=== PATIENT | male | born 1945 | race Caucasian/White ===

== ENCOUNTER 2019-04-07 14:20 | Inpatient (IN) | payer OTHER, MEDICAID ==
[~2019-04-07] VITALS: Ht 175.3 cm; Wt 98.9 kg
[2019-04-07 14:20] VITALS: BP_SYST 134
--- NOTE | 2019-04-07 14:20 | NUR ---
BROUGHT IN BY [facility], PLACED IN BED #1 AND TRIAGED. REPORT GIVEN TO WISAM
--- NOTE | 2019-04-07 14:27 | NUR ---
PATRICIA Finnegan at bedside examining patient.
--- NOTE | 2019-04-07 14:40 | NUR ---
PATIENT PRESENTS TO THE ER WITH HX OF GENERALIZED SUBJECTIVE WEAKNESS TODAY; NO TRAUMA, NO OTHER REMARKABLE S/S; PATIENT STATES HE CALLED 911
--- NOTE | 2019-04-07 14:44 | NUR ---
PATIENT IS ON DRAWING TRACER AND SAO2
[2019-04-07] MEDS ORDERED: IPRATROPIUM/ALBUTEROL SULFATE 3 ML AMPUL.NEB (DUONEB) INH ONE (14:45)
[2019-04-07 15:02] LABS: BASOPHILS % (AUTO) 0.4 % (0.0-2.0); EOSINOPHILS % (AUTO) 0.3 % (0.0-4.0); HEMATOCRIT 34.5 % (36-54); LYMPHOCYTES # (AUTO) 1.1 K/uL (1.0-5.5); LYMPHOCYTES % (AUTO) 11.2 % (20.5-51.5); MEAN CORPUSCULAR HEMOGLOBIN 31 pg (27-31); MEAN CORPUSCULAR HGB CONC 32 % (32-36); MEAN CORPUSCULAR VOLUME 96 fL (79.0-98.0); MONOCYTES # (AUTO) 1.5 K/uL (0.0-1.0); MONOCYTES % (AUTO) 14.9 % (1.7-9.3); NEUTROPHILS # (AUTO) 7.4 K/uL (1.8-7.7); NEUTROPHILS % (AUTO) 73.2 % (40.0-70.0); PLATELET COUNT (AUTO) 317 K/uL (130-430); RED BLOOD CELL COUNT(AUTO) 3.61 MIL/uL (4.2-6.2); RED CELL DISTRIBUTION WIDTH 15.9 % (9.0-15.0); WHITE BLOOD COUNT (AUTO) 10.1 K/uL (4.8-10.8)
[2019-04-07 15:10] LABS: ANION GAP 3 (5-15); CALCIUM 8.5 mg/dL (8.4-11.0); CHLORIDE 103 mmol/L (98-107); CREATININE 1.78 mg/dL (0.55-1.30); GLUCOSE 145 mg/dL (70-99); POTASSIUM 4.5 mmol/L (3.5-5.1); SODIUM SERUM 138 mmol/L (136-145); UREA NITROGEN, BLOOD 25 mg/dL (8-21)
[2019-04-07 15:14] LABS: ALANINE AMINOTRANSFERASE 25 U/L (12-78); ALBUMIN 2.8 g/dL (3.4-4.8); ASPARTATE AMINOTRANSFERASE 30 U/L (10-37); TOTAL BILIRUBIN 0.3 mg/dL (0.0-1.0)
[2019-04-07 15:31] LABS: BILIRUBIN,URINE NEGATIVE (NEGATIVE); BLOOD, URINE NEGATIVE (NEGATIVE); CLARITY/URINE CLEAR (CLEAR); COLOR,URINE YELLOW (YELLOW); GLUCOSE,URINE NEGATIVE (NEGATIVE); KETONES,URINE NEGATIVE (NEGATIVE); LEUKOCYTE ESTERASE ,URINE NEGATIVE (NEGATIVE); NITRITE, URINE NEGATIVE (NEGATIVE); PH,URINE 5.5 (5.0-8.0); PROTEIN URINE TRACE (NEGATIVE); UROBILINOGEN,URINE 0.2 (0.2-1.0)
--- NOTE | 2019-04-07 15:43 | NUR ---
REASSESSMENT; PATIENT REMAINS PAIN FREE AND SEDATE; SLIGHT LETHARGY REMAINS BUT IS EASILY AROUSABLE AND RESPONSIVE TO QUESTIONS; PATIENT IS CURRENTLY ON OXYGEN 2LM NC; DISPOSITION PENDING
[2019-04-07 15:44] LABS: BACTERIA,URINE FEW /HPF (None Seen); MUCUS,URINE None Seen /LPF (None Seen); RBC,URINE 0-3 /HPF (0-3); WBC,URINE NONE SEEN /HPF (0-3)
--- NOTE | 2019-04-07 16:24 | NUR ---
PATIENT PLACED ON BYPAP AT 30% FIO2, BUR 20 AND 12/5 I/E PRESSURE
[2019-04-07] MEDS ORDERED: NACL 0.9% 1,000 ML IV ONE (16:45)
[2019-04-07] MEDS ORDERED: MULT-1089 PO (16:48)
[2019-04-07] MEDS ORDERED: IPRA3AMP9 INH ×2 (16:48)
[2019-04-07] MEDS ORDERED: ASPI-1457 PO (16:48)
[2019-04-07] MEDS ORDERED: NOR10 PO (16:48)
[2019-04-07] MEDS ORDERED: CEFDINIR PO (16:48)
[2019-04-07] MEDS ORDERED: HYT1 PO (16:48)
[2019-04-07] MEDS ORDERED: DOCU-144 PO (16:48)
[2019-04-07] MEDS ORDERED: GABA-533 PO (16:48)
[2019-04-07] MEDS ORDERED: HYDR-4272 PO (16:48)
[2019-04-07] MEDS ORDERED: HYDR-4039 PO (16:48)
[2019-04-07] MEDS ORDERED: POLY17PO4 PO (16:48)
[2019-04-07] MEDS ORDERED: FLO44 INH (16:48)
[2019-04-07] MEDS ORDERED: ALBU8.5H8 INH ×2 (16:48)
[2019-04-07] MEDS ORDERED: POTA10TA15 PO (16:48)
[2019-04-07] MEDS ORDERED: ROSU20TA2 PO (16:48)
[2019-04-07] MEDS ORDERED: SYN50 PO (16:48)
[2019-04-07] MEDS ORDERED: PRED20TA PO (16:48)
[2019-04-07] MEDS ORDERED: FURO-150 PO (16:48)
[2019-04-07] MEDS ORDERED: CAT.2 PO (16:48)
[2019-04-07] MEDS ORDERED: BACL10TA PO (16:48)
[2019-04-07] MEDS ORDERED: CARB200T PO (16:48)
[2019-04-07] MEDS ORDERED: LORA10TA7 PO (16:48)
[2019-04-07] MEDS ORDERED: ALBU2.5V7 INH (16:48)
[2019-04-07] MEDS ORDERED: LISI40TA4 PO (16:48)
[2019-04-07] MEDS ORDERED: BUDE180A IH (16:48)
[2019-04-07] MEDS ORDERED: ACET325T53 PO (16:48)
--- NOTE | 2019-04-07 16:48 | NUR ---
Medication reconciliation completed with information provided by [facility]. Any prior medication reconciliation on file was reviewed and corrected.
--- NOTE | 2019-04-07 17:09 | NUR ---
REASSESSMENT; PATIENT CONTINUES TO IMPROVE MARGINALLY; LESS LETHARGY; DENIES PAIN, SEDATE; DISPOSITION PENDING
--- NOTE | 2019-04-07 17:56 | NUR ---
REASSESSMENT BY [facility]; PATIENT PREPARED FOR ADMISSION TO TELE; DR BARRAGAN CALLED FOR ORDERS AND PATIENT TRANSPORTED TO TELE [facility] WITH REPORT AT BEDSIDE
--- NOTE | 2019-04-07 18:10 | NUR ---
ADMISSION NOTE Received patient from ER via gurney. Patient admitted with diagnosis of Respiratory Failure/COPDE. Patient is awake, alert, oriented X 3. Patient oriented to hospital room, call light, toileting, pain management and safety-teach back done. Patient informed that Kika will be registered nurse and that their room number is 122B. Personal belongings checked and Belongings List documented. Call light within reach.
--- NOTE | 2019-04-07 18:15 | NUR ---
NOTE PATIENT IS ALERT AND ORIENTED. DENIES PAIN. NO ACUTE DISTRESS. CONT ON BIPAP. SKIN WARM AND DRY TO TOUCH. REDNESS NOTED TO BILATERAL LOWER EXTREMITIES; SKIN INTACT. IV INTACT AND PATENT. BED IN LOW AND LOCKED POSITION. SIDERAIL UPX3. BED ALARM ON. ORIENTATED PATIENT TO ROOM, BED AND CALL LIGHT. CONT TO MONITOR
[2019-04-07 18:24] VITALS: BP_SYST 156
[2019-04-07 18:30] VITALS: BP_SYST 156
[2019-04-07] MEDS ORDERED: DOCUSATE SODIUM 100 MG/10 ML UDC PO PRN (19:15)
[2019-04-07] MEDS ORDERED: HYDROcodone/ACETAMIN 7.5-325 MG TAB PO PRN (19:15)
[2019-04-07] MEDS ORDERED: ACETAMINOPHEN 500 MG TABLET PO PRN (19:15)
[2019-04-07] MEDS ORDERED: POTASSIUM CHLORIDE 40 MEQ in NS 250 ML IV PRN (19:15)
[2019-04-07] MEDS ORDERED: IPRATROPIUM/ALBUTEROL SULFATE 3 ML AMPUL.NEB (DUONEB) INH PRN (19:15)
[2019-04-07] MEDS ORDERED: ONDANSETRON HCL 4 MG/2 ML VIAL IVP PRN (19:15)
[2019-04-07] MEDS ORDERED: methylPREDNISolone SOD SUCC/PF 62.5 MG/ML VIAL IVP ONE (19:15)
--- NOTE | 2019-04-07 19:15 | NUR ---
OPENING NOTES Late entry due to patient care. Bedside report received from dayshift nurse. Patient received lying in bed, no s/s of acute distress noted. Breathing even and unlabored, BiPAP attached, HOB slightly raised. Call light with patient. Bed alarm on. Will continue to monitor.
--- NOTE | 2019-04-07 19:23 | NUR ---
CLOSING NOTE PATIENT STABLE. ON BIPAP ORDERED. NO ACUTE DISTRESS. NO SOB. SKIN WARM AND DRY TO TOUCH. IV INTACT TO RIGHT WRIST; NO S/SX REDNESS/INFILTRATION NOTED. REPOSITIONED FOR COMFORT. BED IN LOW AND LOCKED POSITION. SIDERAIL UPX3. BED ALARM ON. CALL LIGHT IN REACH. ENDORSED TO VALE CARLOS.
--- NOTE | 2019-04-07 19:36 | NUR ---
CONSULTATION PAGED/CALLED Reason for Consultation: COPD EXACERBATION Person Who was Notified: GER Consulting Physician: DR. ZARAGOZA; RISK CONTROL FIELD REPRESENTATIVE - DR. MARTE Boiler/Chiller Operator Specialty: PULMO Ordering Physician: DR. BARRAGAN
[2019-04-07 19:56] LABS: INR 1.1 (0.80-1.20); PROTHROMBIN TIME 10.9 SECS (9.5-12.5)
[2019-04-07 19:57] LABS: FREE T4 (FREE THYROXINE) 0.8 ng/dl (0.8-1.5); PHOSPHORUS 4.6 mg/dL (2.7-4.5); THYROID STIMULATING HORMONE 0.68 uIu/mL (0.36-3.74)
[2019-04-07 20:00] VITALS: BP_SYST 151
[2019-04-07] MEDS: cloNIDine HCL 0.2 MG TABLET PO SCH (21:00)
[2019-04-07] MEDS: hydrALAZINE HCL 25 MG TABLET PO SCH (21:00)
--- NOTE | 2019-04-07 21:00 | NUR ---
REFUSES BIPAP Patient removed BiPAP at this time, patient educated on its purpose and benefits, patient still refuses. Nasal canula attached, patient tolerating well, on 2L of oxygen, SPO2 at 91. Dr. Foreman made aware, orders given to keep SPO2 at 90 but not above 92. Will carry out orders.
[2019-04-07] MEDS: TERAZOSIN HCL 1 MG CAPSULE (HYTRIN) PO SCH (22:45)
[2019-04-07] MEDS: GABAPENTIN 400 MG CAPSULE PO SCH (22:45)
[2019-04-07] MEDS: NACL 0.9% 1,000 ML IV SCH (22:46)
--- NOTE | 2019-04-07 23:00 | NUR ---
ROUNDS Patient on recliner at bedside. No signs of discomfort noted. Chest rise and fall even bilaterally. Nasal canula attached properly, on 2L of oxygen. IVF infusing well. Call light with patient. Will continue to monitor.
[2019-04-07] MEDS ORDERED: cefTRIAXone 1 GM IVPB PREMIX 50 ML IV ONE (23:28)
[2019-04-07] MEDS: cefTRIAXone 1 GM in D5W 50 ML IV SCH (23:31)
[2019-04-07] MEDS: AZITHROMYCIN 250 MG TABLET PO SCH (23:32)
[2019-04-08] VITALS: BP_SYST 146
[2019-04-08] MEDS: IPRATROPIUM/ALBUTEROL SULFATE 3 ML AMPUL.NEB (DUONEB) INH SCH ×7 (00:02→23:00)
--- NOTE | 2019-04-08 01:00 | NUR ---
ROUNDS Patient on recliner, sleeping. No s/s of acute distress noted. Breathing is even and unlabored. All needs met. Will continue to monitor.
--- NOTE | 2019-04-08 03:00 | NUR ---
ROUNDS Patient in recliner, by bedside, sleeping. No s/s of acute distress noted. Breathing even and unlabored. Nasal canula attached properly, on 2L of oxygen. Call light with patient. Will continue to monitor.
--- NOTE | 2019-04-08 05:00 | NUR ---
ROUNDS Patient on recliner, sleeping. No signs of discomfort noted. IVF infusing well. Nasal canula attached properly. Call light with patient. Will continue to monitor.
[2019-04-08] MEDS: methylPREDNISolone SOD SUCC/PF 62.5 MG/ML VIAL IVP SCH ×2 (06:14→14:17)
[2019-04-08] MEDS: LEVOTHYROXINE SODIUM 0.05 MG TABLET PO SCH (06:14)
--- NOTE | 2019-04-08 06:42 | NUR ---
CLOSING NOTES Patient on recliner at this time, asleep. No s/s of acute distress noted. Breathing even and unlabored, nasal canula attached properly. IVF infusing well, IV site patent, no signs of infiltration or infection noted. Skin warm and dry to touch. All needs met throughout shift. Fall and safety precautions maintained throughout shift. Will continue to monitor until patient care is endorsed to oncoming dayshift nurse.
[2019-04-08 07:03] LABS: BASOPHILS % (AUTO) 0.1 % (0.0-2.0); HEMATOCRIT 35.2 % (36-54); HEMOGLOBIN 11.1 g/dL (14.0-18.0); LYMPHOCYTES # (AUTO) 0.4 K/uL (1.0-5.5); LYMPHOCYTES % (AUTO) 5.1 % (20.5-51.5); MEAN CORPUSCULAR HEMOGLOBIN 30 pg (27-31); MEAN CORPUSCULAR HGB CONC 32 % (32-36); MEAN CORPUSCULAR VOLUME 96 fL (79.0-98.0); MONOCYTES # (AUTO) 0.2 K/uL (0.0-1.0); MONOCYTES % (AUTO) 2.1 % (1.7-9.3); NEUTROPHILS # (AUTO) 7.7 K/uL (1.8-7.7); NEUTROPHILS % (AUTO) 92.7 % (40.0-70.0); PLATELET COUNT (AUTO) 322 K/uL (130-430); RED BLOOD CELL COUNT(AUTO) 3.68 MIL/uL (4.2-6.2); RED CELL DISTRIBUTION WIDTH 15.4 % (9.0-15.0); WHITE BLOOD COUNT (AUTO) 8.3 K/uL (4.8-10.8)
--- NOTE | 2019-04-08 07:20 | NUR ---
Received patient from NOC shift. Patient sitting in recliner, sleeping. Tolerating 02 nasal cannula at 2 liters. In no acute distress. Call light with in reach.
[2019-04-08 07:45] LABS: ANION GAP 5 (5-15); CHLORIDE 104 mmol/L (98-107); CREATININE 1.27 mg/dL (0.55-1.30); GLUCOSE 235 mg/dL (70-99); POTASSIUM 4.6 mmol/L (3.5-5.1); SODIUM SERUM 139 mmol/L (136-145); UREA NITROGEN, BLOOD 23 mg/dL (8-21)
[2019-04-08] MEDS: ASPIRIN 81 MG TABLET(ECOTRIN) PO SCH (09:19)
[2019-04-08] MEDS: hydrALAZINE HCL 25 MG TABLET PO SCH ×3 (09:19→21:00)
[2019-04-08] MEDS: GABAPENTIN 400 MG CAPSULE PO SCH ×3 (09:20→20:24)
[2019-04-08] MEDS: cloNIDine HCL 0.2 MG TABLET PO SCH ×2 (09:20→21:00)
[2019-04-08] MEDS: amLODIPine BESYLATE 10 MG TABLET PO SCH (09:20)
--- NOTE | 2019-04-08 09:20 | NUR ---
At 0915, patient was transported to radiology for CT of the head.
[2019-04-08] MEDS: LISINOPRIL 20 MG TABLET PO SCH (09:21)
[2019-04-08] MEDS: PANTOPRAZOLE SODIUM 40 MG TAB PO SCH (09:22)
[2019-04-08] MEDS: FUROSEMIDE 20 MG TABLET PO SCH (09:25)
--- NOTE | 2019-04-08 09:50 | NUR ---
Patient arrived back from radiology, tolerated transfer well.
--- NOTE | 2019-04-08 11:15 | NUR ---
MD Foreman at bedside. Patient sitting in recliner, sleeping. Tolerating 02 nasal cannula at 1 liters. In no acute distress. Call light with in reach.
--- NOTE | 2019-04-08 11:17 | NUR ---
Nutrition Update Johnny Scale 17 noted. Pt admitted for respiratory failure, exacerbation chronic obstruction. Diet: regular, chopped, mechanical soft, Ensure High Protein BID BMI: 32.2 kg/m2 RD to follow per nutrition care standards.
[2019-04-08 11:18] VITALS: BP_SYST 155
[2019-04-08 15:12] VITALS: BP_SYST 104
--- NOTE | 2019-04-08 19:45 | NUR ---
OPENING NOTES Received report from morning shift RN. Patient is resting in recliner chair, awake, alert, oriented x 4, breathing evenly and nonlabored on 1L of oxygen via NC. Patient an IV on the right hand 24g, patent and benign, no s/s of infiltration or infection noted, IVF running, patient is tolerating it well. Educated patient on plan of care, fall/safety precautions, and call light system, patient and family stated understanding with return demonstration. Bed is locked, armed, and at lowest position, will continue to monitor.
[2019-04-08] MEDS: NACL 0.9% 1,000 ML IV SCH ×2 (20:21→20:23)
[2019-04-08] MEDS: methylPREDNISolone SOD SUCC 40 MG/ML VIAL IVP SCH (20:23)
[2019-04-08 20:25] VITALS: BP_SYST 149
--- NOTE | 2019-04-08 20:25 | NUR ---
MEDICATION/ROUNDS Patient is resting in recliner chair, awake, breathing evenly and nonlabored on 1L of oxygen via NC. Vital signs stable. Educated patient on medications, patient stated understanding. Administered medications, patient tolerated it well. Fall/safety precautions, will continue to monitor.
[2019-04-08] MEDS: TERAZOSIN HCL 1 MG CAPSULE (HYTRIN) PO SCH (20:27)
--- NOTE | 2019-04-08 21:37 | NUR ---
MEDICATION/ROUNDS Patient is resting in recliner chair, awake, breathing evenly and nonlabored on 1L of oxygen via NC. BP rechecked: 143/51, apresoline and catapres medication held based on parameters. Educated patient on due medications, patient stated understanding. Administered medications, patient tolerated it well. Patient wants to stay and rest on the recliner chair. No s/s of distress at this time, no other needs at this time. Fall/safety precautions, will continue to monitor.
[2019-04-08] MEDS: cefTRIAXone 1 GM in D5W 50 ML IV SCH (21:38)
[2019-04-08] MEDS: AZITHROMYCIN 250 MG TABLET PO SCH (21:39)
--- NOTE | 2019-04-08 23:51 | NUR ---
ROUNDS Patient is resting in recliner chair, eyes closed, breathing evenly and nonlabored on 1L of oxygen via NC. No s/s of distress at this time, no other needs at this time. Fall/safety precautions, will continue to monitor.
[2019-04-09 00:10] VITALS: BP_SYST 142
--- NOTE | 2019-04-09 01:16 | NUR ---
ROUNDS Patient is resting in recliner chair, eyes closed, breathing evenly and nonlabored on 1L of oxygen via NC. No s/s of distress at this time, no other needs at this time. Fall/safety precautions.
--- NOTE | 2019-04-09 01:28 | NUR ---
CONSULTATION PAGED/CALLED Reason for Consultation: ELEVATED BUN AND CREATINE Person Who was Notified:ANGELIQUE Consulting Physician: LILY Aircraft Maintenance Engineer Specialty: Ordering Physician: ROSALINO BARRAGAN
[2019-04-09] MEDS: methylPREDNISolone SOD SUCC 40 MG/ML VIAL IVP SCH ×2 (03:29→12:45)
--- NOTE | 2019-04-09 03:34 | NUR ---
MEDICATION/ROUNDS Patient is resting in recliner chair, eyes closed, breathing evenly and nonlabored on 1L of oxygen via NC. Educated patient on due medication, patient stated understanding. Administered medication, patient tolerated it well. No s/s of distress at this time, no other needs at this time. Fall/safety precautions. Will continue to monitor.
[2019-04-09] MEDS: IPRATROPIUM/ALBUTEROL SULFATE 3 ML AMPUL.NEB (DUONEB) INH SCH ×6 (03:42→23:00)
[2019-04-09] MEDS: LEVOTHYROXINE SODIUM 0.05 MG TABLET PO SCH (06:17)
--- NOTE | 2019-04-09 06:18 | NUR ---
CLOSING NOTES Patient is resting in recliner chair, eyes closed, breathing evenly and nonlabored on 1L of oxygen via NC. Educated patient on due medication, patient stated understanding. Administered medication, patient tolerated it well. Needs met throughout the shift. No s/s of distress at this time, no other needs at this time. Fall/safety precautions. Will endorse care to morning shift RN.
[2019-04-09 08:00] VITALS: BP_SYST 187
--- NOTE | 2019-04-09 08:00 | NUR ---
RN OPENING NOTE PATIENT IS RESTING ON HIS CHAIR BY THE BED SIDE. ALERT ORIENTED X4, DENIES PAIN OR DISCOMFORT. ON NASAL CANULA, SATURATING AT 91% ON 1 LITRE. PATIENT WAS ASSESSED , VITAL SIGNS SHOWS THAT HIS BLOOD PRESSURE IS 187/82 WILL GIVE THE BLOOD PRESSURE MEDICATION RIGHT AWAY, BED AT LOW POSITION AND CALL LIGHT WITHIN REACH, WILL CONTINUE TO MONITOR.
[2019-04-09] MEDS: PANTOPRAZOLE SODIUM 40 MG TAB PO SCH (08:26)
[2019-04-09] MEDS: hydrALAZINE HCL 25 MG TABLET PO SCH ×3 (08:26→22:30)
[2019-04-09] MEDS: LISINOPRIL 20 MG TABLET PO SCH (08:26)
[2019-04-09] MEDS: ASPIRIN 81 MG TABLET(ECOTRIN) PO SCH (08:26)
[2019-04-09] MEDS: amLODIPine BESYLATE 10 MG TABLET PO SCH (08:27)
[2019-04-09] MEDS: GABAPENTIN 400 MG CAPSULE PO SCH ×3 (08:27→22:25)
[2019-04-09] MEDS: FUROSEMIDE 20 MG TABLET PO SCH (08:28)
[2019-04-09] MEDS: cloNIDine HCL 0.2 MG TABLET PO SCH ×2 (08:28→23:50)
[2019-04-09 08:49] LABS: BASOPHILS % (AUTO) 0.1 % (0.0-2.0); HEMATOCRIT 34.3 % (36-54); LYMPHOCYTES # (AUTO) 0.7 K/uL (1.0-5.5); LYMPHOCYTES % (AUTO) 7.7 % (20.5-51.5); MEAN CORPUSCULAR HEMOGLOBIN 30 pg (27-31); MEAN CORPUSCULAR HGB CONC 32 % (32-36); MEAN CORPUSCULAR VOLUME 94 fL (79.0-98.0); MONOCYTES # (AUTO) 0.5 K/uL (0.0-1.0); NEUTROPHILS # (AUTO) 8.2 K/uL (1.8-7.7); NEUTROPHILS % (AUTO) 87.2 % (40.0-70.0); PLATELET COUNT (AUTO) 338 K/uL (130-430); RED BLOOD CELL COUNT(AUTO) 3.64 MIL/uL (4.2-6.2); RED CELL DISTRIBUTION WIDTH 15.2 % (9.0-15.0); WHITE BLOOD COUNT (AUTO) 9.4 K/uL (4.8-10.8)
[2019-04-09 09:01] LABS: ANION GAP 7 (5-15); CALCIUM 8.4 mg/dL (8.4-11.0); CHLORIDE 102 mmol/L (98-107); CREATININE 1.17 mg/dL (0.55-1.30); GLUCOSE 194 mg/dL (70-99); POTASSIUM 4.3 mmol/L (3.5-5.1); SODIUM SERUM 139 mmol/L (136-145); UREA NITROGEN, BLOOD 24 mg/dL (8-21)
[2019-04-09 10:00] VITALS: BP_SYST 149
--- NOTE | 2019-04-09 10:00 | NUR ---
RN NOTE PATIENT WAS GIVEN HIS BLOOD PRESSURE MEDICATIONS. HIS BLOOD PRESSURE NOW IS 149/54 WITH A PULSE OF 76, DR. BAUTISTA WELL DR. YOUSSEF SAID NO MORE INTERVENTION NEEDED TO LOWER THE PRESSURE MORE MEANWHILE PATIENT WAS SERVED HIS BREAKFAST AND ATE IT. WILL CONTINUE TO MONITOR.
[2019-04-09] MEDS ORDERED: 0.45% NACL 1,000 ML IV SCH (11:45)
[2019-04-09 12:00] VITALS: BP_SYST 130
[2019-04-09] MEDS ORDERED: ENOXAPARIN SODIUM 40 MG/0.4 ML SYRINGE SUBCUT ONE (12:00)
--- NOTE | 2019-04-09 12:00 | NUR ---
RN NOTE PATIENT WAS SERVED HIS LUNCH, DENIES PAIN OR DISCOMFORT. PATIENT WAS GIVEN HIS MEDICATION, EDUCATED ABOUT INFECTION CONTROL. WILL CONTINUE TO MONITOR.
--- NOTE | 2019-04-09 14:00 | NUR ---
RN NOTE PATIENT WAS HELPED TO THE BEDSIDE COMMODE WHERE HE HAS A BM, PATIENT WAS RETURNED BACK TO THE CHAIR NEXT TO HIS BED. PATIENT TOLERATED IT VERY WELL. WILL CONTINUE TO MONITOR.
[2019-04-09 16:00] VITALS: BP_SYST 147
--- NOTE | 2019-04-09 16:00 | NUR ---
RN NOTE PATIENT IS AWAKE WATCHING TV. WAS EDUCATED ABOUT HIS DISEASE PROCESS. PATIENT VERBALIZED UNDERSTANDING PATIENT BLOOD PRESSURE IS 147/62 PATIENT WAS GIVEN HIS SCHEDULE HYDRALAZINE. WILL CONTINUE TO MONITOR
--- NOTE | 2019-04-09 18:00 | NUR ---
RN CLOSING NOTE PATIENT IS RESTING , WAS SERVED HIS DINNER. IVF RUNS PRESCRIBE. PATIENT DENIES PAIN OR DISCOMFORT. SATURATING AT 93%. PATIENT MAY BE DISCHARGED IN AM PER HIS PCP. WILL CONTINUE TO MONITOR AND WILL ENDORSE TO NEXT SHIFT.
[2019-04-09 20:00] VITALS: BP_SYST 170
--- NOTE | 2019-04-09 22:00 | NUR ---
DUE MEDS ADM .
[2019-04-09] MEDS: AZITHROMYCIN 250 MG TABLET PO SCH (22:24)
[2019-04-09] MEDS: cefTRIAXone 1 GM in D5W 50 ML IV SCH (22:25)
[2019-04-09] MEDS: TERAZOSIN HCL 1 MG CAPSULE (HYTRIN) PO SCH (22:27)
--- NOTE | 2019-04-09 23:50 | NUR ---
MARY ANNE HELD BP 134/49.
--- NOTE | 2019-04-10 | NUR ---
RESTING COMFORTABLY IN NO ACUTE DISTRESS. O2 SAT ON 2L NC 94%. IVF INFUSING WELL.
[2019-04-10 00:18] VITALS: BP_SYST 154
--- NOTE | 2019-04-10 02:00 | NUR ---
RESTING COMFORTABLY IN RECLINER CHAIR IN NO ACUTE DISTRESS.
[2019-04-10] MEDS: IPRATROPIUM/ALBUTEROL SULFATE 3 ML AMPUL.NEB (DUONEB) INH SCH ×6 (03:00→22:57)
--- NOTE | 2019-04-10 04:00 | NUR ---
ASLEEP BUT EASILY AROUSABLE. NO ACUTE DISTRESS AT THIS TIME.
[2019-04-10] MEDS: LEVOTHYROXINE SODIUM 0.05 MG TABLET PO SCH (06:30)
--- NOTE | 2019-04-10 07:00 | NUR ---
ENDORSED A/A/ . NO ACUTE DISTRESS.IVF INFUSING WELL.SAFETY MAINTAINED.
[2019-04-10 07:20] LABS: BASOPHILS % (AUTO) 0.1 % (0.0-2.0); EOSINOPHILS % (AUTO) 0.2 % (0.0-4.0); HEMATOCRIT 34.5 % (36-54); HEMOGLOBIN 11.2 g/dL (14.0-18.0); LYMPHOCYTES # (AUTO) 1.7 K/uL (1.0-5.5); LYMPHOCYTES % (AUTO) 19.8 % (20.5-51.5); MEAN CORPUSCULAR HEMOGLOBIN 30 pg (27-31); MEAN CORPUSCULAR HGB CONC 32 % (32-36); MEAN CORPUSCULAR VOLUME 94 fL (79.0-98.0); MONOCYTES # (AUTO) 1.1 K/uL (0.0-1.0); MONOCYTES % (AUTO) 13.2 % (1.7-9.3); NEUTROPHILS # (AUTO) 5.8 K/uL (1.8-7.7); NEUTROPHILS % (AUTO) 66.7 % (40.0-70.0); PLATELET COUNT (AUTO) 338 K/uL (130-430); RED BLOOD CELL COUNT(AUTO) 3.68 MIL/uL (4.2-6.2); RED CELL DISTRIBUTION WIDTH 15.3 % (9.0-15.0); WHITE BLOOD COUNT (AUTO) 8.6 K/uL (4.8-10.8)
--- NOTE | 2019-04-10 07:30 | NUR ---
INITIAL NOTE PT RESTING IN BEDSIDE RECLINER CHAIR. PT RECEIVING BREATHING TREATMENT. BREATHING EVEN AND UNLABORED. NO ACUTE DISTRESS NOTED. IVF INFUSING WELL. OZZIE LIGHT WITHIN REACH, BED IN LOW AND LOCKED POSITION WITH BED ALARM ON.
[2019-04-10 07:37] LABS: ANION GAP 3 (5-15); CALCIUM 8.3 mg/dL (8.4-11.0); CHLORIDE 101 mmol/L (98-107); CREATININE 1.06 mg/dL (0.55-1.30); GLUCOSE 87 mg/dL (70-99); POTASSIUM 4.5 mmol/L (3.5-5.1); SODIUM SERUM 139 mmol/L (136-145); UREA NITROGEN, BLOOD 22 mg/dL (8-21)
[2019-04-10 08:00] VITALS: BP_SYST 153
[2019-04-10] MEDS: PANTOPRAZOLE SODIUM 40 MG TAB PO SCH (08:15)
[2019-04-10] MEDS: ASPIRIN 81 MG TABLET(ECOTRIN) PO SCH (08:15)
[2019-04-10] MEDS: GABAPENTIN 400 MG CAPSULE PO SCH ×3 (08:15→22:26)
[2019-04-10] MEDS: hydrALAZINE HCL 25 MG TABLET PO SCH ×3 (08:16→22:26)
[2019-04-10] MEDS: FUROSEMIDE 20 MG TABLET PO SCH (08:17)
[2019-04-10] MEDS: LISINOPRIL 20 MG TABLET PO SCH (08:17)
[2019-04-10] MEDS: cloNIDine HCL 0.2 MG TABLET PO SCH ×2 (08:17→22:24)
[2019-04-10] MEDS: ENOXAPARIN SODIUM 40 MG/0.4 ML SYRINGE SUBCUT SCH (08:21)
[2019-04-10] MEDS ORDERED: amLODIPine BESYLATE 10 MG TABLET PO SCH (09:00)
[2019-04-10] MEDS: amLODIPine BESYLATE 10 MG TABLET PO SCH (09:00)
--- NOTE | 2019-04-10 09:30 | NUR ---
RN ROUNDS PT SITTING UP IN BEDSIDE RECLINER CHAIR. PT REMAINS ON 2L NC. BREATHING EVEN AND UNLABORED. PT DENIES ANY SOB AT THIS TIME.
[2019-04-10] MEDS ORDERED: methylPREDNISolone SOD SUCC 40 MG/ML VIAL IVP ONE (11:00)
--- NOTE | 2019-04-10 11:10 | NUR ---
RN ROUNDS/UP WITH PHYSICAL THERAPY PT AMBULATING USING FRONT WHEEL WALKER, ASSISTED BY PHYSICAL THERAPIST. PT TOLERATING WELL. PT ON 2L NC.
[2019-04-10 12:28] VITALS: BP_SYST 136
--- NOTE | 2019-04-10 13:34 | NUR ---
RN ROUNDS PT HAUNCHED OVER ON RECLINER CHAIR. OFFERED TO REPOSITIONED PT WITH PILLOW. PT REFUSED, STATE HE IS COMFORTABLE IN THE POSITION HE IS. WILL REATTEMPT TO REPOSITION.
--- NOTE | 2019-04-10 15:20 | NUR ---
Discharge Planning: DCP faxed pt referral to [facility] (f [phone] p [phone]) DCP to follow up.
--- NOTE | 2019-04-10 15:30 | NUR ---
RN ROUNDS PT AWAKE, SITTING UP IN CHAIR. PT ON 2L NC, TOLERATING WELL. WILL CONTINUE TO MONITOR.
[2019-04-10 16:26] VITALS: BP_SYST 150
--- NOTE | 2019-04-10 17:30 | NUR ---
RN ROUNDS NO CHANGE IN ASSESSMENT, WILL CONTINUE TO MONITOR.
--- NOTE | 2019-04-10 19:28 | NUR ---
CLOSING NOTE PT AWAKE, SITTING IN BEDSIDE RECLINER. IV SALINE LOCKED. PT ON 2L NC, DENIES ANY SOB AT THIS TIME. CALL LIGHT WITHIN REACH, BED IN LOW AND LOCKED POSITION WITH BED ALARM ON. ALL NEEDS MET THROUGHOUT SHIFT. PT CARED ENDORSED TO RESIDENTIAL APPRAISER RN.
[2019-04-10 19:30] VITALS: BP_SYST 153
--- NOTE | 2019-04-10 19:30 | NUR ---
INITIAL NOTES PATIENT IS SITTING ON THE CHAIR. PATIENT IS STABLE AND SHOWS NO S/S OF RESPIRATORY DISTRESS. PATIENT SUCCESSFULLY DEMONSTRATES USAGE OF CALL LIGHT AT THIS TIME. TABLE IS PLACED IN FRONT OF PATIENT AND EDUCATED ON FALL PRECAUTIONS. PATIENT STATES HE WANTS TO SLEEP ON THE CHAIR. WILL CONTINUE TO MONITOR FREQUENTLY. FALL, SAFETY, ASPIRATION, AND RESPIRATORY PRECAUTIONS WILL BE IN PLACE THROUGHOUT THE SHIFT.
--- NOTE | 2019-04-10 21:45 | NUR ---
PATIENT REQUESTED SOMETHING FOR HIS SINUSES. CALLED DR. RIDLDE AND ORDERS RECEIVED. WILL FOLLOW THROUGH
--- NOTE | 2019-04-10 22:10 | NUR ---
NEW IV PLACED. OLD IV WAS NOT FLUSHING. RIGHT HAND IV WAS TAKEN OUT AT THIS TIME. TIP IN TACT. NO MAJOR BLEEDING NOTED. NEW IV PLACED IN THE FOREARM 22G AND SECURED IN PLACE.
[2019-04-10] MEDS: AZITHROMYCIN 250 MG TABLET PO SCH (22:24)
[2019-04-10] MEDS: TERAZOSIN HCL 1 MG CAPSULE (HYTRIN) PO SCH (22:25)
[2019-04-10] MEDS: LORATADINE 10 MG TABLET PO SCH (22:27)
[2019-04-10] MEDS: cefTRIAXone 1 GM in D5W 50 ML IV SCH (22:28)
[2019-04-10] MEDS: methylPREDNISolone SOD SUCC 40 MG/ML VIAL IVP SCH (22:28)
--- NOTE | 2019-04-10 23:45 | NUR ---
PATIENT IS STABLE AND IN THE CHAIR. NO S/S OF RESPIRATORY DISTRESS NOTED. CALL LIGHT IN REACH. TABLE IS STILL IN FRONT OF THE PATIENT. WILL CONTINUE TO MONITOR.
[2019-04-11] VITALS: BP_SYST 111
--- NOTE | 2019-04-11 01:45 | NUR ---
PATIENT IS SLEEPING IN THE CHAIR. PATIENT IS STABLE. NO S/S OF RESPIRATORY DISTRESS NOTED. CALL LIGHT IN REACH. WILL CONTINUE TO MONITOR.
[2019-04-11] MEDS: IPRATROPIUM/ALBUTEROL SULFATE 3 ML AMPUL.NEB (DUONEB) INH SCH ×3 (03:00→11:42)
--- NOTE | 2019-04-11 03:45 | NUR ---
PATIENT IS SLEEPING IN THE CHAIR. PATIENT IS STABLE. NO S/S OF RESPIRATORY DISTRESS NOTED. CALL LIGHT IN REACH. WILL CONTINUE TO MONITOR.
[2019-04-11] MEDS: LEVOTHYROXINE SODIUM 0.05 MG TABLET PO SCH (06:05)
[2019-04-11 06:38] LABS: BASOPHILS % (AUTO) 0.1 % (0.0-2.0); HEMATOCRIT 30.9 % (36-54); HEMOGLOBIN 9.8 g/dL (14.0-18.0); LYMPHOCYTES # (AUTO) 1.2 K/uL (1.0-5.5); LYMPHOCYTES % (AUTO) 18.4 % (20.5-51.5); MEAN CORPUSCULAR HEMOGLOBIN 30 pg (27-31); MEAN CORPUSCULAR HGB CONC 32 % (32-36); MEAN CORPUSCULAR VOLUME 93 fL (79.0-98.0); MONOCYTES # (AUTO) 0.7 K/uL (0.0-1.0); NEUTROPHILS # (AUTO) 4.6 K/uL (1.8-7.7); NEUTROPHILS % (AUTO) 70.5 % (40.0-70.0); PLATELET COUNT (AUTO) 312 K/uL (130-430); RED BLOOD CELL COUNT(AUTO) 3.32 MIL/uL (4.2-6.2); RED CELL DISTRIBUTION WIDTH 14.9 % (9.0-15.0); WHITE BLOOD COUNT (AUTO) 6.6 K/uL (4.8-10.8)
--- NOTE | 2019-04-11 07:00 | NUR ---
CLOSING NOTES PATIENT IS SITTING IN CHAIR. PATIENT IS STABLE. NO S/S OF RESPIRATORY DISTRESS NOTED. CALL LIGHT IN REACH. BED IS LOCKED, ALARMED, AND AT THE LOWEST POSITION. FALL, SAFETY, ASPIRATION, AND RESPIRATORY PRECAUTIONS HAS BEEN IN PLACE THROUGHOUT THE SHIFT. REPORT GIVEN TO MORNING NURSE AND DISCHARGE INFORMATION ENDORSED.
[2019-04-11 07:26] LABS: ANION GAP 0 (5-15); CALCIUM 8.2 mg/dL (8.4-11.0); CHLORIDE 99 mmol/L (98-107); CREATININE 1.12 mg/dL (0.55-1.30); GLUCOSE 188 mg/dL (70-99); POTASSIUM 4.7 mmol/L (3.5-5.1); SODIUM SERUM 136 mmol/L (136-145); UREA NITROGEN, BLOOD 23 mg/dL (8-21)
[2019-04-11 08:00] VITALS: BP_SYST 141
[2019-04-11] MEDS: ENOXAPARIN SODIUM 40 MG/0.4 ML SYRINGE SUBCUT SCH (09:07)
[2019-04-11] MEDS: FUROSEMIDE 20 MG TABLET PO SCH (09:18)
[2019-04-11] MEDS: PANTOPRAZOLE SODIUM 40 MG TAB PO SCH (09:19)
[2019-04-11] MEDS: GABAPENTIN 400 MG CAPSULE PO SCH (09:19)
[2019-04-11] MEDS: ASPIRIN 81 MG TABLET(ECOTRIN) PO SCH (09:19)
[2019-04-11] MEDS: LORATADINE 10 MG TABLET PO SCH (10:17)
[2019-04-11] MEDS: LISINOPRIL 20 MG TABLET PO SCH (10:18)
[2019-04-11] MEDS: hydrALAZINE HCL 25 MG TABLET PO SCH (10:19)
[2019-04-11] MEDS: methylPREDNISolone SOD SUCC 40 MG/ML VIAL IVP SCH (10:19)
[2019-04-11] MEDS: cloNIDine HCL 0.2 MG TABLET PO SCH (10:20)
--- NOTE | 2019-04-11 10:20 | NUR ---
Discharge Planning: DCP confirmed room with [facility] [place] (f [phone] p [phone]) Rm 231A, transportation arranged with [facility] ([phone]) 12:30pm P/U. Patient packet taken to nurse station.
[2019-04-11 11:52] VITALS: BP_SYST 143
[2019-04-11 12:10] VITALS: BP_SYST 148
--- NOTE | 2019-04-11 13:57 | NUR ---
PHYSICAL THERAPY CO-SIGN The Physical Therapy Progress Notes documented by Press Hand Supervisor have been reviewed. Reviewed/Co-Signed by: Nick Alonzo, PT Documentation Done by: MARJ WALKER PTA Addendum: 04/11/19 at 1358 by Nick Alonzo PT Amended: Links added.
== END 2019-04-11 12:25 | DRG 682 ==
LOC: SED 14:20 → STU 17:56 → SMU 04-09 13:41
PROVIDERS: ADMIT Family Medicine; ATTEND Family Medicine
PROC: 5A09357 Assistance with Respiratory Ventilation, Less than 24 Consecutive Hours, Continuous Positive Airway Pressure (ICD-10-PCS; principal; 2019-04-07)
DX: N17.0 Acute kidney failure with tubular necrosis (principal); J96.22 Acute and chronic respiratory failure with hypercapnia; J18.9 Pneumonia, unspecified organism; E43 Unspecified severe protein-calorie malnutrition; J96.21 Acute and chronic respiratory failure with hypoxia; I13.0 Hypertensive heart and chronic kidney disease with heart failure and stage 1 through stage 4 chronic kidney disease, or unspecified chronic kidney disease; J44.0 Chronic obstructive pulmonary disease with (acute) lower respiratory infection; J44.1 Chronic obstructive pulmonary disease with (acute) exacerbation; D64.9 Anemia, unspecified; E11.22 Type 2 diabetes mellitus with diabetic chronic kidney disease; E66.9 Obesity, unspecified; E78.5 Hyperlipidemia, unspecified; E83.39 Other disorders of phosphorus metabolism; E11.40 Type 2 diabetes mellitus with diabetic neuropathy, unspecified; F17.210 Nicotine dependence, cigarettes, uncomplicated; E83.41 Hypermagnesemia; I50.9 Heart failure, unspecified; I27.81 Cor pulmonale (chronic); N18.9 Chronic kidney disease, unspecified; N40.0 Benign prostatic hyperplasia without lower urinary tract symptoms; R56.9 Unspecified convulsions; Z88.2 Allergy status to sulfonamides; Z79.899 Other long term (current) drug therapy; Z68.32 Body mass index [BMI] 32.0-32.9, adult
CPT/HCPCS: 36415; 36600; 70450-TC; 71045; 80048; 80053; 80061; 81000-TC; 82150-TC; 82803-TC; 83036; 83605; 83690-TC; 83735-TC; 83880; 84100-TC; 84439; 84443-TC; 84484; 85025; 85610-TC; 85730-TC; 86710; 87040-TC; 87081; 87086; 93005; 93306; 94640; 94660; 94760; 96360; 97116-GP; 97530-GP; 99285; G0378; J0696; J1030; J1650; J2930; J3480; J7030; J7050; J7060; J7620; Q0144